=== PATIENT | female | born 1950 | race Caucasian/White ===

== ENCOUNTER 2020-11-04 10:00 | Inpatient (IN) | payer OTHER, MEDICARE ==
[~2020-11-04] VITALS: Ht 162.6 cm; Wt 93.8 kg
--- NOTE | 2020-11-04 10:51 | REP ---
INDICATION: syncope COMPARISON: 05/30/2011. TECHNIQUE: PA/Lateral FINDINGS: Lungs: Clear, no infiltrate. Heart: Normal in size. Mediastinum: Mediastinal silhouette unremarkable. Pleural angles: Unremarkable.. Bones and soft tissues: Unremarkable. IMPRESSION: No acute pulmonary disease. <Electronically signed by Karlos Hancock > 11/04/20 104
[2020-11-04 11:07] LABS: BASO % 0.3 % (0.0-1.0); HEMATOCRIT 45.1 % (36.0-47.0); LYMPH # 1.1 10^3/uL (1.5-5.0); LYMPH % 14.1 % (24.0-44.0); MEAN CORPUSCULAR HEMOGLOBIN 29.9 pg (27.0-33.0); MEAN CORPUSCULAR HGB CONC 33.3 g/dl (32.0-36.5); MEAN CORPUSCULAR VOLUME 89.8 fl (80.0-96.0); MONO # 0.4 10^3/uL (0.0-0.8); MONO % 5.7 % (2.0-8.0); NEUTROPHILS % 79.5 % (36.0-66.0); PLATELET COUNT, AUTOMATED 201 10^3/uL (150-450); RED BLOOD COUNT 5.02 10^6/uL (4.00-5.40); WHITE BLOOD COUNT 7.6 10^3/uL (4.0-10.0)
[2020-11-04 11:46] LABS: BLOOD UREA NITROGEN 13 MG/DL (7-18); CALCIUM LEVEL 8.6 MG/DL (8.8-10.2); CARBON DIOXIDE LEVEL 21 MEQ/L (21-32); CHLORIDE LEVEL 98 MEQ/L (98-107); CK-MB VALUE MASS < 1.0 NG/ML (<3.6); CPK CREATINE PHOSPHOKINASE 58 U/L (26-192); CREATININE FOR GFR 1.06 MG/DL (0.55-1.30); FREE T4 0.94 NG/DL (0.76-1.46); GLOMERULAR FILTRATION RATE 54.9 (>45); GLUCOSE, FASTING 220 MG/DL (70-100); MAGNESIUM LEVEL 1.9 MG/DL (1.8-2.4); MB/CK RELATIVE INDEX 1.72 (< OR =4); POTASSIUM SERUM 4.2 MEQ/L (3.5-5.1); SODIUM LEVEL 130 MEQ/L (136-145); TROPONIN I < 0.02 NG/ML (< 0.10)
[2020-11-04 12:06] LABS: LIPASE 73 U/L (73-393)
[2020-11-04] MEDS ORDERED: ISOVUE-370 76% 100ML VIAL As Ordered ONE (12:08)
[2020-11-04] MEDS ORDERED: ACETAMINOPHEN TAB 650MG DOSE (2X325MG) PO ONE (12:15)
[2020-11-04 12:21] LABS: ALBUMIN 3.5 GM/DL (3.2-5.2); ALT/SGPT 51 U/L (12-78); BILIRUBIN,DIRECT 0.2 MG/DL (0.0-0.2); BILIRUBIN,TOTAL 0.7 MG/DL (0.2-1.0); TOTAL PROTEIN 7.5 GM/DL (6.4-8.2)
--- NOTE | 2020-11-04 13:00 | REP ---
INDICATION: gen abd pain, syncope. COMPARISON: None TECHNIQUE: Axial contrast-enhanced images from the lung bases to the pubic symphysis using 100 cc Isovue 370 intravenous contrast material. Coronal and sagittal reformations obtained. This CT examination was performed using the following dose reduction techniques: Automated exposure control, adjustment of mA and/or kv according to the patient's size, and the use of iterative reconstruction technique. FINDINGS: Liver demonstrates mild hepatosteatosis without focal hepatic lesion. Spleen, pancreas, bilateral adrenal glands and kidneys are normal. Evidence for prior cholecystectomy. The enteric system including stomach, small, and large bowel appears normal. No evidence for obstruction or acute inflammatory process. Normal terminal ileum identified in the right lower quadrant. Pelvis demonstrates normal bladder and prior hysterectomy. No ascites. No free air. No intraperitoneal or retroperitoneal adenopathy. Abdominal aorta and vasculature appear normal. Musculoskeletal structures are intact and without acute osseous abnormality. IMPRESSION: No acute abdominopelvic pathology appreciated. <Electronically signed by Michael Moreno > 11/04/20 [id number]
[2020-11-04] MEDS ORDERED: IBUPROFEN 600MG TAB PO ONE (13:05)
[2020-11-04] MEDS ORDERED: COLE625TAB PO (14:06)
[2020-11-04] MEDS ORDERED: LIVA2TAB PO (14:06)
[2020-11-04] MEDS ORDERED: HYDR-3910 PO (14:06)
[2020-11-04] MEDS ORDERED: GLIM4TAB5 PO (14:06)
[2020-11-04] MEDS ORDERED: LOSA100T50 PO (14:06)
[2020-11-04] MEDS ORDERED: ERGO500029 PO (14:06)
[2020-11-04] MEDS ORDERED: BUSP5TA PO (14:06)
[2020-11-04] MEDS ORDERED: POTA4.25 PO (14:06)
[2020-11-04] MEDS ORDERED: CINA30TA5 PO (14:06)
[2020-11-04] MEDS ORDERED: PANT40TA29 PO (14:06)
[2020-11-04] MEDS ORDERED: BACI1TAB4 PO (14:06)
[2020-11-04] MEDS ORDERED: OMEG10002 PO (14:06)
[2020-11-04] MEDS ORDERED: ASPI-527 PO (14:06)
[2020-11-04] MEDS ORDERED: ATEN25TA PO (14:06)
--- NOTE | 2020-11-04 15:53 | HPEPDOC ---
[facility] Medical History & Physical Date of Admission Nov 04, 2020 Date of Service: Nov 04, 2020 History and Physical CHIEF COMPLAINT: Syncope HISTORY OF PRESENT ILLNESS: 70-year-old female presents for syncopal episode that occurred this morning. Syncopal episode as witnessed by her sister. She describes waking up this morning having a fruit bar for breakfast and then while walking to the bathroom, she felt lightheaded, dizzy, told her sister nearby that she was going to fall. Her sister came to help and eased her to the floor. She apparently was unconscious for only a few seconds, lying on the floor. She denied any head trauma. She denied any loss of control of her bladder or bowel, or seizure-like symptoms. States she has never had an episode like this in the past. Her history goes back to roughly 3 days ago where she developed general lethargy, nausea, subjective fevers, chills, and small episodes of vomiting. In the ED she presently denies any dizziness or headaches. She denies chest pain, shortness of breath. She denies any sick contacts or recent travel. PAST MEDICAL HISTORY: #HTN #DM #DLP PAST SURGICAL HISTORY: #cholecystectomy #appendectomy SOCIAL HISTORY: Reviewed and noncontributory. FAMILY HISTORY: Father: at age 59 from [place] Mother: at age 77, complications from DM as per patient. ALLERGIES: Please see below. REVIEW OF SYSTEMS: Negative except as per HPI. HOME MEDICATIONS: Please see below. PHYSICAL EXAMINATION: VITAL SIGNS: See below General: NAD, lying comfortably in bed HEENT: NC/AT, EOMI Lungs: CTA B/L Heart: +S1S2, RRR Abd: soft, +BS, obese, mid-epigastric tenderness Ext: no edema Neuro: no gross focal deficits Psych: AAOx3 LABORATORY DATA: See below. MICROBIOLOGY: Please see below. A/P: 70-year-old female admitted for syncopal episode witnessed by her sister, without head trauma or seizure-like symptoms. #syncope - admit to PCU - telemetry monitoring - check echocardiogram - check orthostatics - grossly positive in ED - IV fluids - fall precautions #fever - bcx pending - ua noted, ucx pending #hyponatremia - likely hypovolemic - osmolality pending - gentle IV fluids #HTN - atenolol, hydralazine, losartan #DM - insulin sliding scale #GERD - protonix #DLP - convert pitavastatin to simvastatin 10 #DVT prophylaxis - mechanical Vital Signs Vital Signs Date Time Temp Pulse Resp B/P (MAP) Pulse Ox O2 Delivery O2 Flow Rate FiO2 11/04/20 13:56 76 109/51 (70) 77 130/73 (92) 11/04/20 12:57 100.4 18 95 Room Air Laboratory Data Labs 24H Laboratory Tests 2 11/04/20 10:50: Bedside Glucose (Misc Panel) 227H 11/04/20 10:56: Immature Granulocyte % (Auto) 0.4, Neutrophils (%) (Auto) 79.5H, Lymphocytes (%) (Auto) 14.1L, Monocytes (%) (Auto) 5.7, Eosinophils (%) (Auto) 0.0, Basophils (%) (Auto) 0.3, Neutrophils # (Auto) 6.0, Lymphocytes # (Auto) 1.1L, Monocytes # (Auto) 0.4, Eosinophils # (Auto) 0.0, Basophils # (Auto) 0.0, Nucleated Red Blood Cells % (auto) 0.0, Anion Gap 11, Glomerular Filtration Rate 54.9, Calcium Level 8.6L, Magnesium Level 1.9, Total Bilirubin 0.7, Direct Bilirubin 0.2, Aspartate Amino Transf (AST/SGOT) 50H, Alanine Aminotransferase (ALT/SGPT) 51, Alkaline Phosphatase 79, Total Creatine Kinase 58, Creatine Kinase MB < 1.0, Creatine Kinase MB Relative Index 1.72, Troponin I < 0.02, Total Protein 7.5, Albumin 3.5, Albumin/Globulin Ratio 0.9L, Lipase 73, Thyroid Stimulating Hormone (TSH) 1.070, Free Thyroxine 0.94 11/04/20 12:24: Urine Color YELLOW, Urine Appearance HAZY, Urine pH 6.0, Urine Specific Bypro 1.023, Urine Protein 1+H, Urine Glucose (UA) 1+H, Urine Ketones TRACEH, Urine Blood NEGATIVE, Urine Nitrite NEGATIVE, Urine Bilirubin NEGATIVE, Urine Urobilinogen 0.2, Urine Leukocyte Esterase TRACEH, Urine WBC (Auto) 8H, Urine RBC (Auto) 8H, Urine Hyaline Casts (Auto) 0, Urine Bacteria (Auto) 1+H, Urine Squamous Epithelial Cells 5, Urine Mucus (Auto) SMALL, Urine Sperm (Auto) CBC/BMP Laboratory Tests 11/04/20 10:56 Microbiology Microbiology 11/04/20 Urine Culture, Received Pending 11/04/20 Respiratory Virus Panel (PCR) (JOSH) - Final, Complete Home Medications Scheduled Aspirin (Aspirin EC) 325 Mg Tablet.dr, 325 MG PO QPM Atenolol (Atenolol) 25 Mg Tablet, 25 MG PO DAILY Bacillus Coagulans/Vitamin D3 (Probiotic 2 Billion Gummies) 2 Billion Cell-5 Mcg Tab.chew, 2 CHEW PO DAILY Buspirone HCl (Buspirone HCl) 5 Mg Tablet, 5 MG PO BID Cinacalcet HCl (Cinacalcet HCl) 30 Mg Tablet, 30 MG PO QWEEK SUNDAYS Colesevelam Hydrochloride (Welchol) 625 Mg Tablet, 1,875 MG PO BID Ergocalciferol (Vitamin D2) (Vitamin D2) 50,000 Units Cap, 50,000 UNITS PO QWEEK SUNDAYS Glimepiride (Glimepiride) 4 Mg Tablet, 4 MG PO BID Hydralazine HCl (Hydralazine HCl) 25 Mg Tablet, 25 MG PO BID Losartan Potassium (Losartan Potassium) 100 Mg Tablet, 100 MG PO QHS [place]-3/Dha/Epa/Fish Oil (Fish Oil 1,000 mg Softgel) 1 Each Capsule, 1,000 MG PO QPM Pantoprazole Sodium (Pantoprazole Sodium) 40 Mg Tablet.dr, 40 MG PO DAILY Pitavastatin Calcium (Livalo) 2 Mg Tablet, 2 MG PO DAILY Potassium Citrate (Potassium Citrate ER) 15 Meq Tablet.er, 15 MEQ PO DAILY Allergies Coded Allergies: No Known Allergies (Unverified , 11/04/20) A-FIB/CHADSVASC A-FIB History Current/History of A-Fib/PAF?: No BALAJI PLUMMER MD Nov 04, 2020 15:53
[2020-11-04] MEDS: NS 1,000 ML IV SCH (16:30)
[2020-11-04 17:33] LABS: OSMOLALITY SERUM 278 MOSM/KG (280-301)
[2020-11-04] MEDS: ASPIRIN ENTERIC 325 MG TAB PO SCH (18:44)
--- NOTE | 2020-11-04 20:12 | ECGEPIP ---
[facility] - ED Test Date: 2020-11-04 Pat Name: JEFERSON JOAQUIN Department: Room: - Gender: Female Filter Helper: césarponcho : 1950 Requested By: CASANDRA Horner Order Number: [id number] Reading MD: Angelica Chester Measurements Intervals [place] Rate: 83 P: 26 ND: 146 QRS: -60 QRSD: 90 T: -36 QT: 374 QTc: 439 Interpretive Statements Sinus rhythm with occasional premature ventricular complexes Left anterior fascicular block ST & T wave abnormality, consider anterolateral ischemia No prior Electronically Signed on 11-04-2020 20:11:58 EDT by Angelica Chester
[2020-11-04] MEDS: LOSARTAN 50MG TABLET PO SCH (20:29)
[2020-11-04] MEDS: **hydrALAZINE HCL** 25 MG TAB PO SCH (20:29)
[2020-11-04] MEDS: busPIRone 5 MG TAB PO SCH (20:30)
[2020-11-04] MEDS: SIMVASTATIN 10 MG TAB PO SCH ×2 (20:30→20:33)
[2020-11-04] MEDS: OMEGA-3 1000MG CAPSULE PO SCH (21:39)
[2020-11-04] MEDS: COLESEVELAM 625 MG TAB (WELCHOL) PO SCH (21:39)
[2020-11-04 23:40] VITALS: BP 165/78
[2020-11-04] MEDS ORDERED: ONDANSETRON 4MG/2ML VIAL IV PRN (23:55)
[2020-11-04] MEDS ORDERED: IBUPROFEN 600MG TAB PO PRN (23:55)
[2020-11-05] MEDS: ACETAMINOPHEN TAB 650MG DOSE (2X325MG) PO PRN ×3 (00:09→23:55)
[2020-11-05 00:40] VITALS: BP 120/58
[2020-11-05 04:00] VITALS: BP 120/67
[2020-11-05] MEDS: NS 1,000 ML IV SCH (04:23)
[2020-11-05 06:17] LABS: HEMATOCRIT 41.8 % (36.0-47.0); HEMOGLOBIN 13.6 g/dl (12.0-15.5); MEAN CORPUSCULAR HEMOGLOBIN 29.8 pg (27.0-33.0); MEAN CORPUSCULAR HGB CONC 32.5 g/dl (32.0-36.5); MEAN CORPUSCULAR VOLUME 91.5 fl (80.0-96.0); PLATELET COUNT, AUTOMATED 182 10^3/uL (150-450); RED BLOOD COUNT 4.57 10^6/uL (4.00-5.40); WHITE BLOOD COUNT 4.3 10^3/uL (4.0-10.0)
[2020-11-05 06:40] LABS: BILIRUBIN,TOTAL 0.6 MG/DL (0.2-1.0); C REACTIVE PROTEIN QUANTITATIV 9.72 MG/DL (0.00-0.30); CALCIUM LEVEL 8.4 MG/DL (8.8-10.2); GLOMERULAR FILTRATION RATE 58.7 (>45); POTASSIUM SERUM 4.2 MEQ/L (3.5-5.1); TOTAL PROTEIN 6.8 GM/DL (6.4-8.2)
[2020-11-05 07:02] LABS: ERYTHROCYTE SEDIMENTATION RATE 22 mm/hr (0-30)
[2020-11-05 07:30] VITALS: BP 116/60
[2020-11-05] MEDS: **hydrALAZINE HCL** 25 MG TAB PO SCH ×2 (09:00→21:15)
[2020-11-05] MEDS: atenoloL 25 MG TAB PO SCH (09:00)
[2020-11-05] MEDS: PANTOPRAZOLE 40MG TAB (PROTONIX) PO SCH (09:25)
[2020-11-05] MEDS: busPIRone 5 MG TAB PO SCH ×2 (09:25→21:15)
[2020-11-05] MEDS: COLESEVELAM 625 MG TAB (WELCHOL) PO SCH ×2 (09:25→21:15)
--- NOTE | 2020-11-05 10:02 | IPNPDOC ---
Text Note Date of Service The patient was seen on 11/05/20. NOTE Subjective: Patient seen and examined at bedside. No acute overnight events reported. Patient voices no new medical complaints this morning. She denies any dizziness, lightheadedness or headaches. Objective: VITAL SIGNS: See below General: NAD, lying comfortably in bed HEENT: NC/AT, EOMI Lungs: CTA B/L Heart: +S1S2, RRR Abd: soft, +BS, obese, NT Ext: no edema Neuro: no gross focal deficits Psych: AAOx3 LABORATORY DATA: See below. MICROBIOLOGY: Please see below. A/P: 70-year-old female admitted for syncopal episode witnessed by her sister, without head trauma or seizure-like symptoms. #syncope - telemetry monitoring - no events noted - check echocardiogram - check orthostatics - grossly positive in ED - s/p IV fluids - fall precautions #fever - bcx pending - ua noted, ucx contaminated #hyponatremia - hypovolemic, hypotonic - much improved s/p IV fluids #HTN - atenolol, hydralazine, losartan #DM - insulin sliding scale #GERD - protonix #DLP - convert pitavastatin to simvastatin 10 #DVT prophylaxis - mechanical VS,Fishbone, I+O VS, Fishbone, I+O Laboratory Tests 11/04/20 10:56 11/05/20 05:23 Vital Signs Date Time Temp Pulse Resp B/P (MAP) Pulse Ox O2 Delivery O2 Flow Rate FiO2 11/05/20 09:00 116/60 11/05/20 09:00 61 11/05/20 07:30 97.6 18 97 Room Air I&O- Last 24 Hours up to 6 AM 11/05/20 06:00 Intake Total 1170 ml Output Total 150 ml Balance 1020 ml BALAJI PLUMMER MD Nov 05, 2020 10:01
[2020-11-05 12:48] VITALS: BP 144/67
[2020-11-05 16:00] VITALS: BP 148/74
[2020-11-05] MEDS: ASPIRIN ENTERIC 325 MG TAB PO SCH (17:09)
[2020-11-05] MEDS: GLIMEPIRIDE 2 MG TAB PO SCH (17:09)
[2020-11-05] MEDS: OMEGA-3 1000MG CAPSULE PO SCH (17:09)
[2020-11-05] MEDS: cefTRIAXone SOD 1 GM in D5W MINI-BAG PLUS 50 ML IV SCH (17:57)
[2020-11-05] MEDS: DOXYCYCLINE HYCLATE 100 MG in D5W MINI-BAG PLUS 100 ML IV SCH (18:58)
--- NOTE | 2020-11-05 19:45 | ECHO ---
ECHOCARDIOGRAM DATE OF PROCEDURE: 11/05/2020 Age: 70 Gender: Female Height: 163 cm Weight: 94 kg REFERRING PHYSICIAN: Jah Hayden M.D. INDICATION: Syncope. MEASUREMENTS: 2D Measurements: Intraventricular septum 1.23 cm Posterior wall 1.24 cm Left ventricle diastole 5.3 cm Left ventricle systole 3.4 cm Aortic root 3.4 cm Left atrium 3.3 cm Left atrial volume index 26 Proximal ascending aorta 3.0 cm Doppler Measurements: No mitral regurgitation No mitral stenosis Mitral E velocity 62.6 cm/s Mitral A velocity 92.5 cm/s Mitral deceleration time 280 msec Trace tricuspid regurgitation No pulmonic regurgitation MITRAL ANNULAR TISSUE DOPPLER E prime septal 6.4 cm/s, E prime lateral 7.0 cm/s DESCRIPTION: Rhythm was sinus. Image quality was fair. No pericardial effusion. This was a 2D, M-mode, color flow Doppler, and pulsed wave Doppler examination including mitral annular tissue Doppler. CONCLUSIONS: 1. Very mild concentric left ventricular hypertrophy. Normal regional LV wall motion and wall thickening. Normal LV systolic function. LVEF 65% by visual assessment. Grade 1 LV diastolic dysfunction (impaired relaxation filling pattern). 2. Normal right ventricle size and systolic function. 3. Normal size atria. 4. Very mild aortic valve sclerosis of a 3-cuspid aortic valve. 5. No aortic regurgitation. 6. Mild mitral annular calcification. No mitral regurgitation. 7. Otherwise normal appearing echocardiogram Doppler findings.
[2020-11-05 20:00] VITALS: BP 136/61
[2020-11-05] MEDS: SIMVASTATIN 10 MG TAB PO SCH (21:00)
[2020-11-05] MEDS: LOSARTAN 50MG TABLET PO SCH (21:15)
[2020-11-06] VITALS: BP 146/65
[2020-11-06 04:00] VITALS: BP 115/63
[2020-11-06 04:34] LABS: BASO % 0.6 % (0.0-1.0); EOS % 0.4 % (0.0-3.0); HEMATOCRIT 40.2 % (36.0-47.0); HEMOGLOBIN 13.5 g/dl (12.0-15.5); LYMPH # 2.3 10^3/uL (1.5-5.0); LYMPH % 33.1 % (24.0-44.0); MEAN CORPUSCULAR HEMOGLOBIN 30.1 pg (27.0-33.0); MEAN CORPUSCULAR HGB CONC 33.6 g/dl (32.0-36.5); MEAN CORPUSCULAR VOLUME 89.5 fl (80.0-96.0); MONO # 0.6 10^3/uL (0.0-0.8); NEUTROPHILS # 3.9 10^3/uL (1.5-8.5); NEUTROPHILS % 56.6 % (36.0-66.0); PLATELET COUNT, AUTOMATED 199 10^3/uL (150-450); RED BLOOD COUNT 4.49 10^6/uL (4.00-5.40); WHITE BLOOD COUNT 6.9 10^3/uL (4.0-10.0)
[2020-11-06 05:06] LABS: ALT/SGPT 49 U/L (12-78); BILIRUBIN,TOTAL 0.6 MG/DL (0.2-1.0); BLOOD UREA NITROGEN 9 MG/DL (7-18); C REACTIVE PROTEIN QUANTITATIV 9.34 MG/DL (0.00-0.30); CALCIUM LEVEL 8.7 MG/DL (8.8-10.2); CARBON DIOXIDE LEVEL 22 MEQ/L (21-32); CHLORIDE LEVEL 106 MEQ/L (98-107); GLOMERULAR FILTRATION RATE > 60.0 (>45); GLUCOSE, FASTING 132 MG/DL (70-100); POTASSIUM SERUM 3.8 MEQ/L (3.5-5.1); SODIUM LEVEL 137 MEQ/L (136-145); TOTAL PROTEIN 6.8 GM/DL (6.4-8.2)
[2020-11-06 05:07] LABS: ERYTHROCYTE SEDIMENTATION RATE 28 mm/hr (0-30)
[2020-11-06] MEDS: DOXYCYCLINE HYCLATE 100 MG in D5W MINI-BAG PLUS 100 ML IV SCH ×2 (05:43→17:56)
[2020-11-06 08:00] VITALS: BP 127/73
[2020-11-06] MEDS: **hydrALAZINE HCL** 25 MG TAB PO SCH ×2 (08:41→21:06)
[2020-11-06] MEDS: PANTOPRAZOLE 40MG TAB (PROTONIX) PO SCH (08:41)
[2020-11-06] MEDS: COLESEVELAM 625 MG TAB (WELCHOL) PO SCH ×2 (08:41→21:05)
[2020-11-06] MEDS: atenoloL 25 MG TAB PO SCH (08:42)
[2020-11-06] MEDS: GLIMEPIRIDE 2 MG TAB PO SCH ×2 (08:42→17:56)
[2020-11-06] MEDS: busPIRone 5 MG TAB PO SCH ×2 (08:42→21:06)
--- NOTE | 2020-11-06 12:06 | IPNPDOC ---
Text Note Date of Service The patient was seen on 11/06/20. NOTE Subjective: Patient seen and examined at bedside. No acute overnight events reported. Patient voices no new medical complaints this morning. She denies any dizziness, lightheadedness or headaches. Objective: VITAL SIGNS: See below General: NAD, lying comfortably in bed HEENT: NC/AT, EOMI Lungs: CTA B/L Heart: +S1S2, RRR Abd: soft, +BS, obese, NT Ext: no edema Neuro: no gross focal deficits Psych: AAOx3 LABORATORY DATA: See below. MICROBIOLOGY: Please see below. A/P: 70-year-old female admitted for syncopal episode witnessed by her sister, without head trauma or seizure-like symptoms. #syncope - telemetry monitoring - no events noted - echocardiogram - grade 1 diastolic dysfunction - s/p IV fluids - fall precautions #fever - improving - started ceftriaxone/doxycycline - bcx negative to date - ua noted, ucx pending #hyponatremia - resolved - hypovolemic, hypotonic - s/p IV fluids #HTN - atenolol, hydralazine, losartan #DM - insulin sliding scale #GERD - protonix #DLP - convert pitavastatin to simvastatin 10 #DVT prophylaxis - mechanical Disposition: transfer to med/surg, transition to oral antibiotics, anticipate discharge home in 24 hours Martinez CORONADO I+O VSMartinez I+O Laboratory Tests 11/06/20 03:50 Vital Signs Date Time Temp Pulse Resp B/P (MAP) Pulse Ox O2 Delivery O2 Flow Rate FiO2 11/06/20 08:42 82 127/73 11/06/20 08:00 99.2 18 98 Room Air I&O- Last 24 Hours up to 6 AM 11/06/20 06:00 Intake Total 1185 ml Output Total 3250 ml Balance -2065 ml BALAJI PLUMMER MD Nov 06, 2020 12:06
[2020-11-06 14:00] VITALS: BP 116/67
[2020-11-06] MEDS: cefTRIAXone SOD 1 GM in D5W MINI-BAG PLUS 50 ML IV SCH (17:15)
[2020-11-06] MEDS: OMEGA-3 1000MG CAPSULE PO SCH (17:56)
[2020-11-06] MEDS: ASPIRIN ENTERIC 325 MG TAB PO SCH (17:56)
[2020-11-06] MEDS: SIMVASTATIN 10 MG TAB PO SCH (21:00)
[2020-11-06] MEDS: LOSARTAN 50MG TABLET PO SCH (21:06)
[2020-11-06 22:00] VITALS: BP 133/72
[2020-11-07 02:00] VITALS: BP 129/68
[2020-11-07 06:00] VITALS: BP 126/65
[2020-11-07] MEDS ORDERED: DOXYCYCLINE HYCLATE 100MG TABLET PO SCH (06:00)
[2020-11-07] MEDS ORDERED: CEFDINIR 300 MG CAP (OMNICEF) PO SCH (06:00)
[2020-11-07] MEDS ORDERED: CEFD300CAP PO (09:47)
[2020-11-07] MEDS ORDERED: DOXY100T PO (09:47)
[2020-11-07] MEDS: PANTOPRAZOLE 40MG TAB (PROTONIX) PO SCH (09:56)
[2020-11-07 09:58] VITALS: BP 118/60
[2020-11-07] MEDS: GLIMEPIRIDE 2 MG TAB PO SCH (09:58)
[2020-11-07] MEDS: **hydrALAZINE HCL** 25 MG TAB PO SCH (09:58)
[2020-11-07] MEDS: atenoloL 25 MG TAB PO SCH (09:58)
[2020-11-07] MEDS: busPIRone 5 MG TAB PO SCH (09:58)
[2020-11-07] MEDS: COLESEVELAM 625 MG TAB (WELCHOL) PO SCH (09:59)
--- NOTE | 2020-11-16 18:12 | DS.PDOC ---
Discharge Summary General Date of Admission Nov 04, 2020 at 15:49 Date of Discharge 11/07/20 Discharge Summary PROCEDURES PERFORMED DURING STAY: [None]. DISCHARGE DIAGNOSES: #UTI #syncope #hyponatremia #HTN #DM #DLP #GERD COMPLICATIONS/CHIEF COMPLAINT: Syncope. HPI/HOSPITAL COURSE: 70-year-old female presents for syncopal episode that occurred this morning. Syncopal episode as witnessed by her sister. She describes waking up this morning having a fruit bar for breakfast and then while walking to the bathroom, she felt lightheaded, dizzy, told her sister nearby that she was going to fall. Her sister came to help and eased her to the floor. She apparently was unconscious for only a few seconds, lying on the floor. She denied any head trauma. She denied any loss of control of her bladder or bowel, or seizure-like symptoms. States she has never had an episode like this in the past. Her history goes back to roughly 3 days ago where she developed general lethargy, nausea, subjective fevers, chills, and small episodes of vomiting. In the ED she denied any dizziness or headaches. She denied chest pain, shortness of breath. She denied any sick contacts or recent travel. Per hospital course: #syncope - telemetry monitoring - no events noted - echocardiogram - no acute pathology - grade 1 diastolic dysfunction - s/p IV fluids - fall precautions #fever - suspect UTI - improving - started ceftriaxone/doxycycline - transitioned to oral abx on discharge - bcx negative to date - ua noted, ucx pending #hyponatremia - resolved - hypovolemic, hypotonic - s/p IV fluids #HTN - atenolol, hydralazine, losartan #DM - insulin sliding scale #GERD - protonix #DLP - converted pitavastatin to simvastatin 10 as per pharmacy during inpatient stay - d/w patient - no concerns voiced DISCHARGE MEDICATIONS: Please see below. ALLERGIES: Please see below. PHYSICAL EXAMINATION ON DISCHARGE: VITAL SIGNS: Please see below. General: NAD, lying comfortably in bed HEENT: NC/AT, EOMI Lungs: CTA B/L Heart: +S1S2, RRR Abd: soft, +BS, obese, NT Ext: no edema Neuro: no gross focal deficits Psych: AAOx3 LABORATORY DATA: Please see below. ACTIVITY: [As tolerated]. DISPOSITION: 01 Home, Self-Care. DISCHARGE INSTRUCTIONS: 1. Follow up with PCP in 3-5 days DISCHARGE CONDITION: [Stable]. TIME SPENT ON DISCHARGE: 35 minutes. Discharge Medications Scheduled Aspirin (Aspirin EC) 325 Mg Tablet.dr, 325 MG PO QPM, (Reported) Atenolol (Atenolol) 25 Mg Tablet, 25 MG PO DAILY, (Reported) Bacillus Coagulans/Vitamin D3 (Probiotic 2 Billion Gummies) 2 Billion Cell-5 Mcg Tab.chew, 2 CHEW PO DAILY, (Reported) Buspirone HCl (Buspirone HCl) 5 Mg Tablet, 5 MG PO BID, (Reported) Cefdinir (Cefdinir) 300 Mg Capsule, 300 MG PO BID@0600,1800 Cinacalcet HCl (Cinacalcet HCl) 30 Mg Tablet, 30 MG PO QWEEK, (Reported) SUNDAYS Colesevelam Hydrochloride (Welchol) 625 Mg Tablet, 1,875 MG PO BID, (Reported) Doxycycline Hyclate (Doxycycline Hyclate) 100 Mg Tablet, 100 MG PO BID@0600,1800 Ergocalciferol (Vitamin D2) (Vitamin D2) 50,000 Units Cap, 50,000 UNITS PO QWEEK, (Reported) SUNDAYS Glimepiride (Glimepiride) 4 Mg Tablet, 4 MG PO BID, (Reported) Hydralazine HCl (Hydralazine HCl) 25 Mg Tablet, 25 MG PO BID, (Reported) Losartan Potassium (Losartan Potassium) 100 Mg Tablet, 100 MG PO QHS, (Reported) [place]-3/Dha/Epa/Fish Oil (Fish Oil 1,000 mg Softgel) 1 Each Capsule, 1,000 MG PO QPM, (Reported) Pantoprazole Sodium (Pantoprazole Sodium) 40 Mg Tablet.dr, 40 MG PO DAILY, (Reported) Pitavastatin Calcium (Livalo) 2 Mg Tablet, 2 MG PO DAILY, (Reported) Potassium Citrate (Potassium Citrate ER) 15 Meq Tablet.er, 15 MEQ PO DAILY, (Reported) Allergies Coded Allergies: No Known Allergies (Unverified , 11/04/20) BALAJI PLUMMER MD Nov 16, 2020 18:11
== END 2020-11-07 11:58 | disposition home or self-care (01) | DRG 690 ==
LOC: M ED 10:00 → M ED INP 15:49 → M PCU 23:38 → M MSPAV 11-06 14:02
PROVIDERS: ADMIT Internal Medicine; ATTEND Internal Medicine
DX: N39.0 Urinary tract infection, site not specified (principal); E87.1 Hypo-osmolality and hyponatremia; R55 Syncope and collapse; K21.9 Gastro-esophageal reflux disease without esophagitis; E11.9 Type 2 diabetes mellitus without complications; I10 Essential (primary) hypertension; R50.9 Fever, unspecified; Z79.82 Long term (current) use of aspirin; Z79.899 Other long term (current) drug therapy

== ENCOUNTER → 2024-06-11 | Outpatient (CLI) | payer MEDICARE, OTHER ==
[~2024-06-11] MED LIST: ASPI-527 PO; ATEN25TA PO; BACI1TAB4 PO; BUSP5TA PO; CEFD300CAP PO; CINA30TA5 PO; COLE625T17 PO; DOXY100T PO; ERGO500029 PO; GLIM4TAB5 PO; HYDR25TA87 PO; LIVA2TAB PO; LOSA100T46 PO; OMEG10002 PO; PANT40TA29 PO; POTA4.25 PO
== END ==
LOC: M CARPUL 13:48
PROVIDERS: ATTEND Physician Assistant
DX: I08.3 Combined rheumatic disorders of mitral, aortic and tricuspid valves (principal)